=== PATIENT | male | born 1995 | race Caucasian/White ===

== ENCOUNTER → 2017-07-14 14:25 | Outpatient (CLI) | payer OTHER, BC, SELFPAY ==
--- NOTE | 2017-07-14 14:28 | XR_ITS ---
XR knee LT 4V HISTORY: ITS.REASON: Left knee pain ORDERING PHYSICIAN: Kushal Szymanski MD PATIENT AGE: 22 years COMPARISON: None FINDINGS: No fracture or dislocation. No lytic or blastic change. Normal mineralization. No significant arthritic changes evident. No other significant findings IMPRESSION: Normal left knee
== END ==
PROVIDERS: PCP Internal Medicine Adolescent Medicine; Visit Provider Orthopaedic Surgery
DX: M25.562 Pain in left knee (principal)
CPT/HCPCS: 73564

== ENCOUNTER → 2017-08-26 08:52 | Outpatient (CLI) | payer OTHER, BC, SELFPAY ==
--- NOTE | 2017-08-26 08:57 | MR_ITS ---
MR head/brain wo con HISTORY: Frontal headache, visual disturbance, diplopia ITS.REASON: HEADACHE IN FRONT OF HEAD, DIPLOPIA ORDERING PHYSICIAN: Salvatore Nair MD PATIENT AGE: 22 years COMPARISON: None TECHNIQUE: Standard multiplanar multiecho sequences are performed without contrast. FINDINGS: No midline shift, mass effect, intracranial hemorrhage, or hydrocephalus is evident. No evidence of acute infarction. The cerebellopontine angles, cerebellum, and brainstem are unremarkable. No pituitary mass. Optic chiasm has an unremarkable. No cerebellar ectopia. Hippocampal structures are unremarkable. Polk-white matter differentiation is unremarkable. No abnormal white matter signal intensity apparent.. No mastoid effusion or sinus air-fluid level. No large aneurysms are evident. Small aneurysms may not be detected with this technique and may be better evaluated for with MRA clinically warranted. IMPRESSION: Negative MRI of the brain without contrast
== END ==
PROVIDERS: Family Provider Internal Medicine Adolescent Medicine; PCP Internal Medicine Adolescent Medicine; Visit Provider Internal Medicine Adolescent Medicine
DX: R51 Headache (principal); H53.2 Diplopia
CPT/HCPCS: 70551; 76376

== ENCOUNTER → 2018-04-28 13:45 | Outpatient (CLI) | payer OTHER, BC, SELFPAY ==
[2018-05-02 11:14] LABS: Varicella Zoster IgG >4000 index (Immune >165)
== END ==
PROVIDERS: Visit Provider Nurse Practitioner Family
DX: Z20.828 Contact with and (suspected) exposure to other viral communicable diseases (principal)
CPT/HCPCS: 36415; 86787

== ENCOUNTER → 2018-05-17 13:42 | Outpatient (CLI) | payer OTHER, BC, SELFPAY ==
[2018-05-19 09:33] LABS: Varicella Zoster IgG >4000 index (Immune >165)
== END ==
PROVIDERS: Visit Provider Internal Medicine Adolescent Medicine
DX: Z00.00 Encounter for general adult medical examination without abnormal findings (principal)
CPT/HCPCS: 36415; 86787

== ENCOUNTER → 2019-07-21 08:25 | Outpatient (CLI) | payer OTHER, SELFPAY ==
[2019-07-21 08:52] LABS: Basophils % 0.4 % (0.1-2.0); Eosinophils # 0.1 K/mm3 (0.0-0.4); Hemoglobin 14.7 g/dL (14.1-18.0); Lymphocytes # 1.6 K/mm3 (0.7-4.5); Lymphocytes % 48.8 % (10-50); Mean Corpuscular HGB Conc 33.5 g/dL (31.8-35.4); Mean Corpuscular Hemoglobin 29.6 pg (27.0-31.2); Mean Corpuscular Volume 88.2 fl (80-94); Mean Platelet Volume 7.2 fl (7.4-10.4); Monocytes # 0.2 K/mm3 (0.1-1.0); Monocytes % 5.2 % (1.7-9.3); Neutrophils # 1.4 K/mm3 (1.8-7.8); Neutrophils % 43.6 % (37.0-80.0); Platelet Count 283 K/mm3 (142-424); Red Blood Count 4.99 M/mm3 (4.60-6.20); Red Cell Distribution Width 12.7 % (11.5-17.5); White Blood Count 3.2 K/mm3 (4.8-10.8)
[2019-07-21 11:47] LABS: Alanine Aminotransferase 101 U/L (12-78); Albumin/Globulin Ratio 1.4 (1.1-1.8); Alkaline Phosphatase 70 U/L (46-116); Anion Gap 12.4 mEq/L (5-15); Aspartate Amino Transferase 41 U/L (15-37); Bilirubin,Total 0.7 mg/dL (0.2-1.0); Blood Urea Nitrogen 21 mg/dL (7-18); Calcium 8.6 mg/dL (8.5-10.1); Carbon Dioxide 27 mmol/L (21.0-32.0); Chloride 104 mmol/L (98-107); Creatinine,Serum 1.03 mg/dL (0.70-1.30); Estimated Glomerular Filt Rate 87 ml/min (>60); Free Thyroxine Index 2.4 ug/dL (5.93-13.13); GFR (African American) 106 ML/MIN (>60); Globulin 2.8 gm/dl (1.3-3.2); Glucose 84 mg/dL (74-106); Potassium 4.4 mmoL/L (3.5-5.1); Sodium 139 mmol/L (136-145); T4 (Thyroxine) 6.8 ug/dl (4.7-13.3); Thyroid Stimulating Hormone 2.23 uIU/ml (0.358-3.740); Total Protein,Serum 6.8 gm/dL (6.4-8.2); Triiodothryronine (T3) Uptake 35 % (31-39)
[2019-07-22 15:31] LABS: Prolactin 14.7 ng/mL (4.0-15.2)
== END ==
PROVIDERS: Visit Provider Internal Medicine Adolescent Medicine
DX: N62 Hypertrophy of breast (principal)
CPT/HCPCS: 36415; 80053; 82533; 84146; 84436; 84443; 84479; 85025

== ENCOUNTER → 2021-06-16 20:24 | Outpatient (CLI) | payer OTHER, SELFPAY | PROVIDERS: Visit Provider Nurse Practitioner Family | DX: U07.1 COVID-19 (principal) | CPT/HCPCS: C9803; U0003; U0005 ==

== ENCOUNTER 2021-09-01 10:10 | Emergency (ER) | payer OTHER, SELFPAY ==
[2021-09-01 12:22] VITALS: BP 0/0; PULSE 0; RESP 0; TEMP -17.7; TEMP 0; O2SAT 0
== END 2021-09-01 12:23 | disposition left against medical advice (07) ==
PROVIDERS: Emergency Provider Nurse Practitioner Family; PCP Internal Medicine Adolescent Medicine
DX: Z53.21 Procedure and treatment not carried out due to patient leaving prior to being seen by health care provider (principal)

== ENCOUNTER 2023-11-09 09:25 | Outpatient (CLI) | payer BC, SELFPAY | END 2023-11-09 23:59 | disposition home or self-care (01) | LOC: LAB.DROPOF 11-10 09:25 | PROVIDERS: PCP Student in an Organized Health Care Education/Training Program; Visit Provider Student in an Organized Health Care Education/Training Program | DX: J02.9 Acute pharyngitis, unspecified (principal); B95.4 Other streptococcus as the cause of diseases classified elsewhere | CPT/HCPCS: 87070; 87077; 87186 ==

== ENCOUNTER 2025-03-23 12:07 | Outpatient (CLI) | payer SELFPAY ==
[2025-03-23 12:36] LABS: Hematocrit 44.6 % (42.0-52.0); Hemoglobin 15.3 g/dL (14.1-18.0); Immature Granulocytes % 0.2 %; Mean Corpuscular HGB Conc 34.3 g/dL (31.8-35.4); Mean Corpuscular Hemoglobin 29.7 pg (27.0-31.2); Mean Corpuscular Volume 86.4 fl (80-94); Nucleated Red Blood Cells % 0 %; Platelet Count 272 K/mm3 (142-424); Red Blood Count 5.16 M/mm3 (4.60-6.20); Red Cell Distribution Width-SD 39.4 fL; White Blood Count 4.9 K/mm3 (4.8-10.8)
[2025-03-23 13:41] LABS: Anion Gap 13.6 mEq/L (5-15); Blood Urea Nitrogen 20 mg/dl (9-20); Calcium 9.1 mg/dl (8.4-10.2); Carbon Dioxide 27 mmol/L (22.0-30.0); Chloride 102 mmol/L (98-107); Creatinine,Serum 1.20 mg/dl (0.66-1.25); Estimated Glomerular Filt Rate 71 ml/min (>60); GFR (African American) 85 ML/MIN (>60); Glucose 85 mg/dl (74-100); Potassium 4.6 mmoL/L (3.5-5.1); Sodium 138 mmol/L (136-145)
== END 2025-03-23 23:59 | disposition home or self-care (01) ==
LOC: LAB 12:08
PROVIDERS: PCP Internal Medicine Adolescent Medicine; Visit Provider Internal Medicine Adolescent Medicine
DX: E29.1 Testicular hypofunction (principal)
CPT/HCPCS: 36415; 80048; 85025

== ENCOUNTER 2025-06-11 12:26 | Outpatient (CLI) | payer MEDICAID, SELFPAY ==
--- OUTSIDE RECORDS SUMMARY | 2025-06-11 12:30 | XMS_ITS | Clinical Summary ---
Author Organization [facility] Address [address] [place] [address] Care Team Providers Care Tangled Yarn Spool Straightener Name Role Phone Salvatore Nair MD Primary Care Provider [phone] Allergies No known active allergies Medications * This document contains information received from the source organization and may not represent a complete record from that organization. fluticasone (Flonase) 50 MCG/ACT nasal spray Administer 1 spray into each nostril if needed. 2 Active Alavert Allergy/Sinus 5-120 MG 12 hr tablet Take 1 tablet by mouth if needed. 2 Active montelukast (Singulair) 10 MG tablet Take 10 mg by mouth if needed. 2 Active ondansetron ODT (Zofran-ODT) 4 MG disintegrating tablet Take 4 mg by mouth if needed. 2 Active Vitamin D3 125 MCG (5000 UT) capsule Take 2 capsules (10,000 Units) by mouth 1 (one) time per week. 3 Active albuterol 108 (90 Base) MCG/ACT inhaler Inhale 2 puffs every 4 (four) hours if needed. 3 Active famotidine (Pepcid) 20 MG tablet Take 1 tablet (20 mg) by mouth 1 (one) time each day if needed. Active Active Problems No known active problems Immunizations Immunization Administration Dates Next Due Hep B, adult 06/01/1994,1993,1993 Influenza, Unspecified 01/02/2020 Influenza, injectable, MDCK, preservative free, quadrivalent 03/15/2023 Influenza, injectable, quadr ivalent, preservative free 03/26/2022,05/01/2021 Influenza, seasonal, injectable 04/25/2024 MMR 09/26/1997,08/24/1994 Kauli COVID-19 Vac cine (Purple Cap) 12+ 05/01/2021,10/30/2020,06/13/2020 Tdap 12/23/2011 Family History Medical History Relation Name Comments Hypertension Father Dudley Diabetes Maternal Grandmother Marta No Known Problems Mother No Known Problems Sister Relation Name Status Comments Father Dudley Alive Maternal Grandmother Marta Mother Alive Sister Alive Social History Tobacco Use Types Packs/Day Years Used Date Smoking Tobacco: Never Smokeless Tobacco: Never Alcohol Use Standard Drinks/Week Comments Never 0 (1 standard drink = 0.6 oz pur e alcohol) Humiliation, Afraid, Rape, and Kick questionnair e Answer Date Recorded Within the last year, have y ou been afraid of your partner or ex-partner? Patient declined 06/21/2023 Within the last year, have y ou been humiliated or emotionally abused in other ways by your partner or ex-partner? Patient declined 06/21/2023 Within the last year, have y ou been kicked, hit, slapped, or otherwise physically hurt by your partner or ex-partner? Patient declined 06/21/2023 Within the last year, have y ou been raped or forced to have any kind of sexual activity by your partner or ex-partner? Patient declined 06/21/2023 PHQ-2 Answer Date Recorded Patient Health Questionnaire-2 Score 0 03/09/2023 Hunger Vital Sign Answer Date Recorded Within the past 12 months, y ou worried that your food would run out before you got the money to buy more. Patient declined Within the past 12 months, t he food you bought just didn't last and you didn't have money to get more. Patient declined 01/2024 PRAPARE - Transportation Answer Date Re corded In the past 12 months, has l ack of transportation kept you from medical appointments or from getting medications? Patient declined 06/21/2023 In the past 12 months, has l ack of transportation kept you from meetings, work, or from getting things needed for daily living? Patient declined 06/21/2023 Housing Stability Vital Sign Answer Ed e Recorded In the last 12 months, was t here a time when you were not able to pay the mortgage or rent on time? No 06/21/2023 Number of Places Lived in the Last Year Not on f ile 06/21/2023 In the last 12 months, was t here a time when you did not have a steady place to sleep or slept in a half-way (including now)? No 06/21/2023 Utilities Answer Date Recorded In the past 12 months has th e [employer], gas, oil, or water company threatened to shut off services in your home? Patient refused 06/21/2023 PHQ-2A Answer Date Recorded Patient Health Questionnaire-2 Score 0 03/09/2023 Sex and Gender Information Value Date Recorded Sex Assigned at Not on file Legal Sex Male 8:53 PM EDT Gender Identity Not on file Sexual Orientation Not on file Last Filed Vital Signs Vital Sign Reading Time Taken Comments Blood Pressure 115/70 03/09/2023 11:49 AM EDT Pulse 61 03/09/2023 11:49 AM EDT Temperature 36.4 C (97.6 F) 03/09/2023 11:49 AM EDT Respiratory Rate - - Oxygen Saturation 98% 03/09/2023 11:49 AM EDT Inhaled Oxygen Concentration - - Weight 102 kg (225 lb 12 oz) 03/09/2023 11:49 AM EDT Height 180.3 cm (5' 11 ) 03/09/2023 11:49 AM EDT Body Mass Index 31.49 03/09/2023 11:49 AM EDT Plan of Treatment Health Maintenance Due Date Last Done Comments [facility]-HIV Screening 1993 [facility]-Hepatitis C Screening 1993 [facility]-Infant/Child/Adol SDOH Screenings 1993 [facility]-Varicella Vaccines (1 of 2 - 13+ 2-dose series) 2006 [facility]- SDOH Screenings 2011 [facility]-Adult SDOH Screenings 2011 [facility]-DTaP,Tdap,and Td Vaccines (2 - Td or Tdap) 12/22/2021 12/23/2011 [facility]-Depression Screening 03/09/2024 03/09/2023 [id number] Vaccine ( season) 2025 05/01/2021, 10/30/2020, 06/13/2020 [facility]-Influenza Vaccine (#1) 02/12/202504/25, 03/15/2023, 03/26/2022, Additional history exists [facility]-Zoster Vaccines (1 of 2) 2043 [facility]-Hepatitis B Vaccines Completed 994, 1993, 1993 [facility]-Obesity Intervention Completed 06/21/2023, 02/13 HPV Vaccines (No Doses Required) Completed [facility]-HIB Vaccines Aged Out No longer e ligible based on patient's age to complete this topic [facility]-Hepatitis A Vaccines Aged Out No longer eligible based on patient's age to complete this topic [facility]-IPV Vaccines Aged Out No longer e ligible based on patient's age to complete this topic [facility]-Pneumococcal Vaccine: Pediatrics (0 to 5 Years) and At-Risk Patients (6 to 49 Years) Aged Out No longer eligible based on patient's age to complete this topic [facility]-Rotavirus Vaccines Aged Out No lo nger eligible based on patient's age to complete this topic Insurance Care Teams Tangled Yarn Spool Straightener Relationship Specialty Start Date End Date Salvatore Nair MD [facility] [id number] PCP - General Internal Medicine 11/18/21
--- OUTSIDE RECORDS SUMMARY | 2025-06-11 12:30 | XMS_ITS | Clinical Summary ---
Author Organization [employer] [facility] [employer] Address [address] [facility] [place] [address] Care Team Providers Care Securities Counselor Name Role Phone Salvatore Nair MD Primary Care Provider Allergies No known active allergies Medications albuterol (VENTOLIN HFA) 90 mcg/actuation inhaler Inhale 2 puffs 3 Active cholecalciferol, vitamin D3, 125 mcg (5,000 unit) capsule Take 10,000 Units by mouth 3 Active famotidine (PEPCID) 20 MG tablet Take 1 tablet (20 mg total) by mouth Active fluticasone propionate (FLONASE) 50 mcg/actuation nasal spray Instill 1 spray into each nostril 2 Active loratadine-pseudoep hedrine (Alavert D-12 Allergy-Sinus) 5-120 mg Tb12 Take 1 tablet by mouth 2 Active montelukast (SINGULAIR) 10 mg tablet Take 1 tablet (10 mg total) by mouth 2 Active ondansetron (ZOFRAN-ODT) 4 MG disintegrating tablet Take 1 tablet (4 mg total) by mouth every 8 (eight) hours as needed for nausea or vomiting 20 tablet 3 Active Immunizations Immunization Administration Dates Next Due Flucelvax Trivalent PFS IM; Without Preservative (18+ mos) 03/15/2023 Social History Tobacco Use Types Packs/Day Years Used Date Smoking Tobacco: Never Passive Smoke Exposure: Never Smokeless Tobacco: Never Tobacco Cessation:Counseling Given: Not Answered Sex and Gender Information Value Date Recorded Sex Assigned at Not on file Legal Sex Male 9:27 AM EDT Gender Identity Not on file Sexual Orientation Not on file Last Filed Vital Signs Vital Sign Reading Time Taken Comments Blood Pressure 128/80 05/12/2023 12:25 PM EST Pulse 85 05/12/2023 12:25 PM EST Temperature 36.6 C (97.9 F) 05/12/2023 12:25 PM EST Respiratory Rate 20 05/12/2023 12:25 PM EST Oxygen Saturation 99% 05/12/2023 12:25 PM EST Inhaled Oxygen Concentration - - Weight 102 kg (225 lb) 05/12/2023 12:25 PM EST Height 180.3 cm (5' 11 ) 05/12/2023 12:25 PM EST Body Mass Index 31.38 05/12/2023 12:25 PM EST Plan of Treatment Health Maintenance Due Date Last Done Comments Depression: Screening Annually using PHQ-2/9 in Adults 18 yrs or above (or HM Modifier)([facility]) 2011 Hepatitis C Virus Infection in Adolescents and Adults: Screening (or Modifier) ([facility]) 2011 SDMT Screening Reminder: Annually for all adults ([facility]) 2011 Tobacco Smoking Cessation: i n Adults excluding Women: Behavioral and Pharmacotherapy Interventions ([facility]) 2011 DTaP/Tdap/Td Vaccines ([facility]) (2 - Td or Tdap) 12/22/2021 12/23/2011 Flu Vaccination: Yearly for ages 18mos through 64 years (or Modifier)([facility]) 01/12/2025 03/15/2023, 03/26/2022, 05/01/2021, Additional history exists COVID-19 Vaccine Screening: Initial Series and Booster Status ([facility]) (2024- season) 2025 05/01/2021, 10/30/2020, 06/13/2020 Zoster/Shingles Vaccine Series Screening: Adults aged 18+ yrs (or HM Modifiers)([facility]) (1 of 2) 2043 Pneumococcal Vaccination Screening: Pts 0-19 & 19-49 yrs of age ([facility]) Aged Out No longer eligible based on patient's age to complete this topic [employer] Not on file [place] [address] [place] [address] Care Teams Securities Counselor Relationship Specialty Start Date End Date Salvatore Nair MD [address] [facility] [address] [place] [address] PCP - General Adolescent Medicine 03/15/23
--- OUTSIDE RECORDS SUMMARY | 2025-06-11 12:30 | XMS_ITS | Patient Health Record ---
Author Organization [facility] Address [address] [place] [id number] Care Team Providers Care Ham Boner Name Role Phone Rubén Merchant Unavailable [phone] Adam Duncan Unavailable [phone] Reason For Referral No Information Immunizations Vaccine Route Administration Date Status Comme nts PPD Aplisol ID Intradermal 11/10/2024 Administered PPD Aplisol ID Intradermal 11/28/2024 Administered Problems No Known Problems Encounters Encounter Location Date Provider Diagnosis [facility] [address] [place] [address] 11/10/2024 Rubén Merchant PPD screening test Z11.1 [id number] [employer] [facility] [address] [place] [address] 11/28/2024 Adam Duncan PPD screening test Z11.1 Assessments Encounter Date Diagnosis (ICD Code) Assessment Notes Treatment Notes Treatment Clinical Notes Section Notes 11/10/2024 PPD screening test (ICD-10 - Z11.1) Patient reports they have never had a positive ppd reaction. 11/28/2024 PPD screening test (ICD-10 - Z11.1) Patient reports they have never had a positive ppd reaction. Plan Of Treatment No Information Insurance Providers Payer Name Payer Address Payer Phone Subscriber Number Group Number Insured Name Patient Relationship to Insured Coverage Start Date Coverage End Date PROMPT PAY/Bill to Patient Neftali Nevarez Self - patient is the insured
[2025-06-11 13:03] LABS: Hematocrit 45.7 % (42.0-52.0); Hemoglobin 16.0 g/dL (14.1-18.0); Immature Granulocytes % 0.4 %; Mean Corpuscular HGB Conc 35.0 g/dL (31.8-35.4); Mean Corpuscular Hemoglobin 30.2 pg (27.0-31.2); Mean Corpuscular Volume 86.4 fl (80-94); Nucleated Red Blood Cells % 0 %; Platelet Count 284 K/mm3 (142-424); Red Blood Count 5.29 M/mm3 (4.60-6.20); Red Cell Distribution Width-SD 39.8 fL; White Blood Count 5.2 K/mm3 (4.8-10.8)
[2025-06-11 13:09] LABS: Hemoglobin A1C 5.0 % (4.0-6.0)
[2025-06-11 13:18] LABS: Alanine Aminotransferase 73 U/L (12-78); Albumin Level 4.5 g/dl (3.5-5.0); Albumin/Globulin Ratio 1.6 (1.1-1.8); Alkaline Phosphatase 71 U/L (38-126); Anion Gap 10.1 mEq/L (5-15); Aspartate Amino Transferase 59 U/L (17-59); Bilirubin,Total 0.9 mg/dl (0.2-1.3); Blood Urea Nitrogen 15 mg/dl (9-20); Calcium 9.0 mg/dl (8.4-10.2); Carbon Dioxide 29 mmol/L (22.0-30.0); Chloride 103 mmol/L (98-107); Cholesterol 219 mg/dl (140-200); Creatinine,Serum 1.30 mg/dl (0.66-1.25); Estimated Glomerular Filt Rate 64 ml/min (>60); GFR (African American) 77 ML/MIN (>60); Globulin 2.9 g/dL (1.3-3.2); Glucose 76 mg/dl (74-100); HDL Cholesterol 35 mg/dl (40-60); Potassium 4.1 mmoL/L (3.5-5.1); Sodium 138 mmol/L (136-145); Total Protein,Serum 7.4 g/dl (6.3-8.2); Triglycerides 346 mg/dl (30-150)
[2025-06-11 13:35] LABS: 25-OH Vitamin D, Total 31.4 ng/mL (30-100)
[2025-06-12 04:28] LABS: Hepatitis C Antibody Non Reactive (Non Reactive)
[2025-06-12 09:14] LABS: Testosterone,Total 876 ng/dL (264-916)
== END 2025-06-11 23:59 | disposition home or self-care (01) ==
LOC: LAB 12:29
PROVIDERS: PCP Internal Medicine Adolescent Medicine; Visit Provider Internal Medicine Adolescent Medicine
DX: Z00.00 Encounter for general adult medical examination without abnormal findings (principal); E55.9 Vitamin D deficiency, unspecified; E29.1 Testicular hypofunction; Z13.1 Encounter for screening for diabetes mellitus; Z11.59 Encounter for screening for other viral diseases
CPT/HCPCS: 36415; 80053; 80061; 82306; 83036; 84403; 85025; 86803